=== PATIENT | male | born 1965 | race Caucasian/White ===

== ENCOUNTER 2020-02-18 09:16 | Day surgery (SDC) | payer OTHER, SELFPAY ==
[2020-02-10 07:36] VITALS: BMI 27.0
--- NOTE | 2020-02-17 11:20 | EKG12_ITS ---
Test Reason : PRE OP Blood Pressure : / mmHG Vent. Rate : 067 BPM Atrial Rate : 067 BPM P-R Int : 180 ms QRS Dur : 100 ms QT Int : 406 ms P-R-T Axes : 066 075 029 degrees QTc Int : 429 ms Normal sinus rhythm Normal ECG Confirmed by LIDA HATFIELD ([id number]), editor magazine ORLANDO ROSARIO ([id number]) on 02/18/2020 11:36:34 AM Referred By: Román Peña Confirmed By:LIDA HATFIELD
[2020-02-18] VITALS (7 sets, daily range): BP systolic 111–150; BP diastolic 71–84; PULSE 64–70; RESP 12–16; TEMP 36.3–37; O2SAT 95–98; BMI 24.9
[2020-02-18] MEDS: Lactated Ringers 1,000 ML 100 ML IV ×2 (09:47→12:00)
--- NOTE | 2020-02-18 10:26 | PCM.HP.BLA ---
Problem List (1) Right inguinal hernia Status: Acute History and Physical Date of Admission: 02/18/20 Intake Visit Reasons: Inguinal Hernia Chief Complaint: Possible right inquinal hernia Arborer Required: No Is patient in pain?: No Allergies No Known Allergies Allergy (Verified 02/10/20 07:36) Medications Vit D 1 tab PO DAILY 05/29/17 [History Confirmed 02/10/20] [facility] Medical History (Updated 02/10/20 @ 07:[address] Román Peña MD) Right inguinal hernia (Acute) Chronic appendicitis (Acute) SBO (small bowel obstruction) (Acute) Seasonal allergies (Chronic) history of dvt (Chronic) Abdominal pain (Acute) Right inguinal hernia (Acute) Surgical History (Updated 02/10/20 @ 07:32 by Ibis Villanueva) History of appendectomy (Acute) Family History (Updated 02/10/20 @ 07:34 by Ibis Villanueva) Uncle Diabetes Brother Diabetes High cholesterol Heart disease Father Diabetes Hypertension Grandfather Heart disease Mother Hypertension Social History (Updated 02/10/20 @ 07:[address] Román Peña MD) Smoking Status: Never smoker alcohol intake: current substance use type: does not use HPI HPI HPI: JALEN RAMAN, is a 55 M who presents to the office today for concerns regarding a possible right inguinal hernia. May 2017 I assisted him with a diagnostic laparoscopy identifying a recently resolved small bowel obstruction. I lysed a single adhesion. I performed a laparoscopic appendectomy for suspected chronic appendicitis and I did an umbilical herniorrhaphy. Fortunately he has not had any small bowel obstruction since that time. However over the past several weeks and couple months he has had progressive bulging pain discomfort in the right groin. He has suspected that he had a right inguinal hernia. He has not previously had any groin hernias. He has no difficulty on the left. He has had a remote history of a right lower extremity DVT but that was related to a cellulitis of the right foot. He otherwise enjoys very good health. The pathology from his laparoscopy did show early acute appendicitis. Tissue from the ascending: Biopsy showed organizing nodular fat necrosis with degenerative change with no evidence of malignancy. HPI HPI HPI: JALEN RAMAN, is a 55 M who presents to the office today for ROS General General: No weight change, appetite, fatigue, colon cancer, breast cancer or weakness HEENT HEENT: No difficulty swallowing, eye injury, eye surgery, swollen glands or hoarseness Endo Endocrine: No thyroid disease, diabetes mellitus, thyroid cancer, Hair loss, heat intolerance or cold intolerance Skin Skin: No rash or changing moles Breast Breast: No left breast lump, right breast lump, nipple discharge, breast pain, abnormal mammogram, abnormal US or breast enlargement [facility] [place] Musculoskeletal: No back problems, arthritis, rheumatoid arthritis, gout or joint pain Cardio Cardiovascular: No murmur, pacemaker, heart disease, atrial fibrillation, high blood pressure, heart attack, heart stent, palpitations, shortness of breat with exertion or chest pain Psych Psychiatric: No depression, anxiety or hearing voices Resp Respiratory: No shortness of breath, No sleep apnea, No cough, No COPD, No asthma, No emphysema, No wheezing Gastro Gastrointestinal: Yes abdominal pain, No nausea or vomiting, No diarrhea, No constipation, No blood in stool, No acid reflux, No hemorrhoids, No ulcers, No gallbladder problem, No black,tarry stools Dom Hematologic: No blood thinners, No blood disorders, No bleeding, No anemia, No blood clots Neuro Neurologic: No system reviewed and no additional complaints, except as docu, No as per HPI, No abnormal walking, No abnormal hearing, No abnormal movements, No abnormal speech, No behavioral changes, No burning sensations, No confusion, No seizure-like activity, No unsteadiness, No dizziness, No localized weakness, No frequent falls, No headache(s), No lack of coordination, No loss of vision, No memory loss, No numbness, No other visual disturbances, No radiating pain, No restless legs, No sensory deficit, No fainting, No tingling, No tremor(s), No weakness, No other Exam Const General: cooperative, healthy appearing, comfortable, no acute distress, well developed Nutritional Appearance: average body habitus Orientation: alert, awake [facility] Head: normal to inspection Chest Breast Palpation: No nipple discharge Resp Effort & Inspection: normal respiratory effort Auscultation: clear to auscultation bilaterally Cardio Rate: regular rate Rhythm: regular rhythm Heart Sounds: no murmurs GI Palpation: soft, no hepatosplenomegaly Auscultation: normal bowel sounds Other: Umbilical hernia repair is solid and intact Other: Obvious right inguinal hernia indirect reducible. No similar defect on the left. Testicles are descended and intact. [facility] [place] Cervical Spine: normal cervical lordosis Neuro Cognition: normal cognition Extrem General: no calf tenderness Psych Affect: normal affect Assessment & Plan Problems 1. Right inguinal hernia K40.90 Plan 55-year-old gentleman who has a right inguinal hernia. No previous repair. It is currently reducible. I propose for him a Ayanna right inguinal herniorrhaphy with mesh. We have extensively discussed the technique, benefit, risk of alternatives and we compared and contrasted this to a laparoscopic right inguinal hernia repair. Because of the patient's previous history of small bowel obstruction with a absolute clear etiology not specifically identified at the time of that laparoscopy and with him having gone through a laparoscopic appendectomy and umbilical herniorrhaphy at that time ideally I would avoid penetration of the peritoneum. He is also in favor of having the procedure performed with monitored anesthesia care and local anesthetic. This would avoid a general anesthetic. He is aware of technique, benefit, risk, alternatives. No guarantees of success have been offered. He is aware of the Covid-19 pandemic. He is aware that the [facility] is reporting a low local incidence. We will schedule and proceed at his discretion and expedite his care. Cc: Dr. Maciel Peña M.D., F.A.C.S. I have re-examined the patient. There are no clinical changes since date of exam. Procedure Criteria Procedure Type: Elective COVID Risk Discussion: The surgeon/proceduralist and patient have discussed in detail the risk of exposure to and/or potential harm posed by the COVID-19 virus with having a surgery/procedure at this time versus the risk of delaying the surgery/procedure. It is not possible to know either the risk of delaying the surgery or procedure or chance of getting an infection with perfect accuracy, but a joint decision was made between the patient and the surgeon/proceduralist to proceed at this time with the scheduled surgery/procedure as indicated on the consent form.
[2020-02-18] MEDS: Cefazolin 2 GM in 0.9% Normal Saline 100 ML IV (11:32)
--- NOTE | 2020-02-18 11:40 | DCINST_ITS ---
Discharge Diet: Light diet - advance as tolerated - if you have questions about your diet instructions, please talk to you doctor. Discharge Activity: May Not Drive - for 3-5 days or while taking narcotic pain medicine. May shower in (days): 1 Lifting Restrictions: 10 pounds Call your doctor if your incision/area has: Continuous Slow Oozing, Sudden Increased Bleeding, Increased Pain/ Swelling, Increased Redness, Foul Smelling Discharge Call your doctor if you observe: Fever of 101 or Higher Suture Line Care: Avoid Pulling/Pushing, Avoid Pinching/Bending Additional Dressing/Incision Instructions:: Change or remove dressing in 4 days. Leave steri-strips in place for 1 week. Allergies/Adverse Reactions: Allergies No Known Allergies Allergy (Verified 02/18/20 09:41) Medications to take at Discharge Vit D 1 tab PO DAILY 05/29/17 Primary Care Physician: Maciel Maravilla DO [Primary Care Provider] - Test Results: Test results from this visit will be discussed in further detail at your follow- up appointment, if applicable. Please Follow Up With: Román Peña MD - [phone] When: Call to make an appointment to be seen in about 10 days. May be virtual
[2020-02-18] MEDS: Bupivacaine Mpf 0.5% 30 ML VIAL (12:53)
--- NOTE | 2020-02-18 12:56 | PCM.OPRPT ---
Problem List (1) Right inguinal hernia Status: Acute Report of Operation Date of Procedure: 02/18/20 Pre-Operative Diagnosis: Indirect right inguinal hernia Post-Operative Diagnosis: Same Surgery/Procedure Performed:: Lichenstein right inguinal herniorrhaphy. Bard mesh preshaped keyhole. Lot number [id number]. Reference #[id number]. Expiry date 03/15/2024 Description of Surgical Findings:: 55-year-old gentleman was taken to the operating room. He was placed supine on the table. He underwent monitored anesthesia care. The right groin was sterilely prepped and draped. Ancef 2 g were given intravenously. 1% lidocaine mixed 50-50 with 0.5% Marcaine was used as a local anesthetic. 25 cc was used. Local was instilled. A ilioinguinal nerve block was performed. Transverse incision was made in the right groin sharp dissection carried down through the subcutaneous tissue. External oblique was identified and incised. The cord structures identified these were dissected free and a Ronda drain was placed circumferentially. Tedious sharp and blunt dissection was performed as the cremasterics fibers were hypertrophied. Were needed these were traced dissected and transected with electrocautery. A cord lipoma and an indirect sac was identified and these were completely dissected free and then inverted. Tedious dissection was required to clearly identify the inguinal floor. I then approximated the transversalis fascia to itself with a running 3-0 Ethibond starting from the pubic tubercle to the internal ring reapproximating the internal ring. This helped keep the lipoma and sac inverted. I then used a keyhole mesh. Wrapped that around the internal ring and secured it to itself laterally with 3-0 Ethibond trimmed the tails placed of beneath the external oblique and then secured the mesh to the pubic tubercle aponeurosis of the internal/external oblique into the shelving edge of Poupart's with the 3-0 Ethibond. Good coverage and securement was felt to been achieved. The mesh appeared to have good positional lie. Ilioinguinal nerve was felt to been protected posteriorly. The external oblique was partially reapproximated with running 3-0 Vicryl. Subdermal tissues approximated with the same. Skin edges approximated running septic or 4-0 Monocryl. Steri-Strips Telfa OpSite dressings applied. Sponge and instrument and needle counts were reported to the surgeon to be correct. Specimens none. Drains none. Blood loss minimal. Román Peña M.D., F.A.C.S. Type of Anesthesia:: Local MAC Anesthesiologist: Oc Griffiths
== END 2020-02-18 14:37 | disposition home or self-care (01) ==
LOC: SDC 09:17 → AC 09:18
PROVIDERS: Anesthesiology; PCP Family Medicine; Referring Provider Surgery; Visit Provider Surgery
PROC: (CPT 49505; principal; 2020-02-18 11:20)
DX: K40.90 Unilateral inguinal hernia, without obstruction or gangrene, not specified as recurrent (principal); Z11.59 Encounter for screening for other viral diseases; Z86.718 Personal history of other venous thrombosis and embolism
CPT/HCPCS: 00830; 49505; 87635; 93005; G2023; J7120; C1781; J2405; U0003

== ENCOUNTER 2020-02-21 17:25 | Emergency (ER) | payer OTHER, SELFPAY ==
[2020-02-18 09:41] VITALS: BMI 24.9
[2020-02-21 17:26] VITALS: BP 128/98; PULSE 132; RESP 16; TEMP 36.4; BMI 24.7
--- NOTE | 2020-02-21 17:41 | ED.VIS.GEN ---
History of Present Illness Chief Complaint: Abd Pain Detail of Chief Complaint: Rectal pressure Informant: Patient Onset: Today Current Severity: Moderate Maximum Severity: Moderate Narrative: Patient presents secondary to rectal pain and constipation. He had an inguinal hernia repair on February 17. He has been taking Aleve and Tylenol for pain, he did not require the narcotics that were written for him. He states that he had a very small bowel movement this morning and urinated at that time. Since then he has been straining to try to have a bowel movement but unable. He states he has also had difficulty passing urine. He denies fever or chills. He states that the surgical site has not been bothering him today at all. - Past Medical History (1) H/O inguinal hernia repair Status: Chronic (2) SBO (small bowel obstruction) Status: Chronic (3) history of dvt Status: Chronic Past Medical History - Allergies and Home Meds Allergies/Adverse Reactions: Allergies No Known Allergies Allergy (Verified 02/21/20 17:28) Primary Care Physician: Maciel Maravilla DO [Primary Care Provider] - Doctors: Dr. Peña Prior records reviewed: Yes Surgical History: - - dental surgery, colonoscopy Lives: Spouse/ Significant Other Smoking Status: Never smoker - Family History Offspring Family History: Family History (Last Updated 02/10/20 @ 07:34 by Ibis Villanueva) Uncle Diabetes Brother Diabetes High cholesterol Heart disease Father Diabetes Hypertension Grandfather Heart disease Mother Hypertension Family History: Reports: Unknown Maternal Family History: Family History (Last Updated 02/10/20 @ 07:34 by Ibis Villanueva) Uncle Diabetes Brother Diabetes High cholesterol Heart disease Father Diabetes Hypertension Grandfather Heart disease Mother Hypertension Family History: Reports: Hypertension Paternal Family History: Family History (Last Updated 02/10/20 @ 07:34 by Ibis Villanueva) Uncle Diabetes Brother Diabetes High cholesterol Heart disease Father Diabetes Hypertension Grandfather Heart disease Mother Hypertension Family History: Reports: Diabetes, - Review of Systems General: Denies: Chills, Fever Eyes: Denies: Visual changes - bilaterally ENT: Denies: Bilateral ear pain Cardiovascular: Denies: Chest pain Respiratory: Denies: Dyspnea, Cough Gastrointestinal: Reports: Constipation, - - Rectal pressure. Denies: Abdominal pain Genitourinary: Reports: - - Difficulty urinating. Denies: Dysuria Musculoskeletal: Denies: Extremity Pain Skin: Denies: Rash Neurological: Denies: Headache Hematologic: Denies: Easy bruising, Easy bleeding Allergy: Denies: Uticaria Physical Exam Vital Signs/Narrative: Vital Signs Temp Pulse Resp BP 02/21/20 17:26 97.6 F L 132 H 16 128/98 H Inital Vital Signs reviewed: Yes General: Well nourished, Well developed Head: Normocephalic ENT: Moist mucous membranes Neck: Supple Cardiovascular: Regular rate, Regular rhythm Respiratory: No distress, CTA bilaterally Abdomen: Soft, Nontender, - - Right groin surgical site clean with minimal tenderness. Rectal: - - Large amount of stool in the rectal vault. Disimpacted best as possible. Extremities: Nontender Skin: Normal color Neurological: Alert, Oriented x3 Psychological: - - Anxious Diagnostic/Tx/Re-eval - Medical Decision Making Patient's rectum was disimpacted manually. Soapsuds enema was attempted with poor results. He still does not feel he is able to urinate. Bladder scan revealed greater than 200 cc of urine. Coronado catheter was placed with 1100 cc of urine out. At this time patient reports significant improvement in the pelvic pressure. He still feels like he is constipated. At this time he is refusing to go home with the Coronado catheter. He does understand that he might be back in 6 or 8 hours if he cannot urinate and has increased pain again. He will be given a bottle of mag citrate for home. ED Disposition - Plan for ED Patient: Disposition: Home or Assisted Living Diagnosis: Urinary retention, Constipation Instructions: ED Urinary Retention Male, ED Constipation Referrals: Maciel Maravilla DO [Primary Care Provider] - Román Peña MD [STAFF PHYSICIAN] -
--- NOTE | 2020-02-21 20:07 | ED.RN ---
urinary catheter removed upon discharged, output 1,200 ml
[2020-02-21 20:24] VITALS: BP 134/82; PULSE 99; RESP 16; O2SAT 99
[2020-02-21] MEDS: Magnesium Citrate 300 ML PO (20:24)
== END 2020-02-21 20:50 | disposition home or self-care (01) ==
PROVIDERS: Emergency Provider Emergency Medicine; PCP Family Medicine
DX: R33.9 Retention of urine, unspecified (principal); K59.00 Constipation, unspecified
CPT/HCPCS: 51702; 99285

== ENCOUNTER 2020-09-08 13:05 | Outpatient (RCR) | payer OTHER, SELFPAY | END 2020-09-08 23:59 | LOC: IMMUN 13:05 | PROVIDERS: PCP Family Medicine; Visit Provider Family Medicine | DX: Z23 Encounter for immunization (principal) | CPT/HCPCS: 0011A; 0012A; 91301 ==

== ENCOUNTER 2024-09-03 07:55 | Day surgery (SDC) | payer OTHER, SELFPAY ==
[2024-09-03] VITALS (10 sets, daily range): BP systolic 128–138; BP diastolic 72–94; PULSE 53–74; RESP 14–16; TEMP 36.1–36.4; O2SAT 93–100; BMI 25.7
--- NOTE | 2024-09-03 | IMM_PTH ---
PATIENT: JALEN RAMAN LOC: [facility] [place] U#:[id number] AGE/SX: 59/M ROOM: RE09/03/[address]: Dr. Codey Hill MD : [id number] BED: DIS: 09/03/2024 SPEC #: [id number] RECD: 09/07/24 10:40 STATUS: LOU REQ #: [id number] ANGELICA: 09/03/24 00:[address]: Codey Hill DEPT: IMMUNOHISTOCHEMISTRY RECD BY: Shamar Liang ENTERED: 09/07/24 10:41 SP TYPE: IMMUNO OTHR DR: Dr. Maciel Maravilla, DO Tissues: A - Lymph node of pelvis, NOS Procedures: BCL-2 (add) BCL-6 (add) CD10 (add) CD20 (add) CD23 (add) CD3 (add) CD43 (add) CD45 (add) CD5 (add) CD79A (add) CK8 (add) CYCLIN (add) KI-67 (add) Pankeratin (initial) PHYSICIAN & [address] [address] SPECIMEN INFORMATION: Tissue Source: A- Left inguinal lymph node Clinical Info: Cholelithiasis, enlarged lymph nodes Specimen Number: [id number] CPT code: [id number] METHODOLOGY: Deparaffinized sections of prefer/formalin-fixed tissue or PAP/DQ stained slides are incubated with monoclonal/polyclonal antibodies/oligonucleotide probes. Localization is made via biotin free immunoperoxidase method. Appropriate controls are performed and reacted as expected. Results on target cell population are indicated in the following table: RESULTS: ANTIBODY / CLONE RESULT Block A 2 AE1-3 (AE1/AE3/PCK26) negative CK8 ([id number]) negative CD3 (PS1) negative CD5 (SP10) positive CD20 (L26) positive CD43 (L60) positive CD45 (RP2/18) positive CD79a (11E3) positive CD10 (56C6) negative CD23 (1B12) positive BCL-2 (bcl-2/100/D5) positive BCL-6 (TB282C/A8) negative Cyclin D1/BCL-1 (SP4) negative Ki-67 (30-9) positive, low to moderate These tests were developed and their performance characteristics determined by [facility]. They may not have been cleared or approved by the U.[place]. Food and Drug Administration. The FDA has determined that such clearance or approval is not necessary. The above immunohistochemical/dualISH markers are ordered and reviewed by the Pathologist. INTERPRETATION: A. Left inguinal lymph node, biopsy: Non-Hodgkin B-cell small lymphocytic lymphoma (B-SLL/CLL). [facility] 09/08/2024
[2024-09-03] MEDS: 0.9% Normal Saline (1000mL) 1,000 ML 15 ML IV (08:05)
--- NOTE | 2024-09-03 08:16 | PRE.ANES_ITS ---
ASA Classification* ASA Classification ASA Classification: 2 Assessment & Plan Anesthesia* Anesthesia Assessment Anesthesia Assessment: Discussed sedation and/or anesthesia options, risks, benefits, and alternatives with patient/parents/legal guardian/POA. Questions invited. The patient/parents/legal guardian/POA seems to understand and agrees to proceed with anesthesia plan. Reviewed the physical assessment, medical history, allergy history and patient home medications list prior to surgery/procedure/anesthetic and documented any changes. Performed airway and anesthesia risk assessments. Anesthesia Type Anesthesia Type: General (Hx n/v) Anesthesia Focused Assessment* Airway Assessment Mouth opens: >3 cm Mallampati Score: II Focused Labs Anesthesia Preop lab: CBC WBC 12.3 K/mm3 (4.4-11.0) H 05/29/17 04:35 RBC 5.69 M/mm3 (4.6-6.2) 05/29/17 04:35 Hgb 16.9 g/dl (13.0-16.5) H 05/29/17 04:35 Hct 49.3 % (40-54) 05/29/17 04:35 Plt Count 215 K/mm3 (150-450) 05/29/17 04:35 CHEMISTRY Potassium 3.8 mmol/L (3.5-5.1) 05/29/17 04:35 Sodium 139 mmol/L (136-145) 05/29/17 04:35 Magnesium 2.0 mg/dL (1.8-2.4) 05/29/17 07:55 Phosphorus 2.2 mg/dL (2.5-4.9) L 05/29/17 07:55 BUN 17 mg/dL (7-18) 05/29/17 04:35 Creatinine 1.21 mg/dL (0.70-1.30) 05/29/17 04:35 Glucose 159 mg/dL (70-110) H 05/29/17 04:35 COAG PT 12.8 SECONDS (11.7-14.9) 05/29/17 07:55 Pre-Assessment Diagnosis/Proposed Procedure Planned Operative Procedure(s): LAP CHOLEY WITH GRAMS LEFT LYMPH NODE BX Anesthesia History 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 When Was Last Pacemaker Check QUESTION #4 FULL TEXT: You/Your Family Experience fever (hyperthermia) with Anesthesia Last Oral Intake Last Oral intake: Last Oral Intake NPO since Meds taken in AM with sips of water? 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 Has anyone observed you stop No 09/02/24 08:26 breathing during sleep? STOP Results Negative 09/02/24 08:26 QUESTION #5 FULL TEXT : Do you snore loudly (louder than talking or can be heard through closed doors)? 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 Specify any problems Hx of Preganancy in last 3 N/A 09/02/24 08:26 Months Nurse Filling Out Transfusion DSCHRIBER 09/02/24 08:26 & Questions: Date: 09/02/24 09/02/24 08:26 Time: 08:09/02/24 08:26 Patient unable to answer at this time (ie. 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: /Reproductive Hx- balancing machine set up worker Hx Now No 09/02/24 08:26 Gestational Age (in weeks): EDC: Hx Hx Para Hx Section SAB No 09/02/24 08:26 Active Medications Active Medications: Current Medications Generic Name Dose Route Start Last Admin Trade Name Freq PRN Reason Stop Dose Admin Cefotetan Disodium 2 gm/ 100 mls @ 200 mls/hr 09/03/24 08:55 Sodium Chloride IV 09/03/24 09:24 PREOP ONE Sodium Chloride 1,000 mls @ 15 mls/hr 09/03/24 08:05 IV 09/08/24 21:24 .Q48H [facility] Protocol PFSH Medical History Wears glasses Alcohol use Prostate disease Orthostatic hypotension Heartburn Non-smoker DVT (deep venous thrombosis) Cardiology follow-up encounter Cholelithiasis Right inguinal hernia Chronic appendicitis Abdominal pain Seasonal allergies SBO (small bowel obstruction) Home Medications ?Medication ?Instructions ?Recorded ?Last Taken ?Type antiarthritic combination no.2 900 1,800 mg PO DAILY 09/02/24 Unknown History mg tablet (glucosamine-chondroitin) ascorbic acid (vitamin C) 500 mg 500 mg PO DAILY 09/02/24 Unknown History tablet (Vitamin C) cholecalciferol (vitamin D3) 25 25 mcg PO DAILY 09/02/24 Unknown History mcg (1,000 unit) capsule (Vitamin D3) fiber 1 tab PO DAILY 09/02/24 Unknown History loratadine 10 mg tablet (Allergy 10 mg PO DAILY 09/02/24 Unknown History Relief (loratadine)) vitamin B complex 1 tab PO DAILY 09/02/24 Unknown History Allergy/AdvReac Type Severity Reaction Status Date / Time bee venom protein (honey Allergy Intermediate Swelling Verified 09/02/24 08:20 bee) (bee sting) Family History Uncle Diabetes Brother Diabetes High cholesterol Heart disease Father Diabetes Hypertension Grandfather Heart disease Mother Hypertension Surgical History Hx of colonoscopy History of right inguinal hernia repair History of appendectomy Social History Smoking Status: Never smoker alcohol intake: current substance use type: does not use Review of Systems (Anesthesia) ROS Narrative System reviewed and no additional complaints, except as documented.
--- NOTE | 2024-09-03 08:24 | EKG12_ITS ---
Test Reason : PREOP Blood Pressure : */* mmHG Vent. Rate : 72 BPM Atrial Rate : 72 BPM P-R Int : 160 ms QRS Dur : 96 ms QT Int : 388 ms P-R-T Axes : 56 47 45 degrees QTcB Int : 424 ms Normal sinus rhythm Normal ECG Confirmed by DHEERAJ RACHEL, OLGA ([id number]), newspaper copy editor MARBIN GOODMAN ([id number]) on 09/14/2024 2:20:20 PM Referred By: Codey Hill Confirmed By: OLGA ESQUEDA MD
--- NOTE | 2024-09-03 12:54 | HP.PCM_ITS ---
History and Physical Date of Admission: 09/03/24 Intake Vital Signs 08/26/2507:07 Height 6 ft 1 in Weight: 196 lb 8 oz BMI 25.9 BP 115/74 Blood Pressure Location Rt brachial Position Sitting Respiration 18 Pulse 65 Pulse Source Monitor Temp 97.6 F L Temp Source Temporal Pulse Oximetry (%) 99 Oxygen Delivery Method room air Intake Visit Reasons: due for c-scope/has gallstones Chief Complaint: due for c-scope/ has gallstones Is patient in pain?: No Allergies No Known Allergies Allergy (Verified 08/26/24 08:08) Medications ?Medication ?Instructions ?Recorded ?Confirmed ?Type Vit D 1 tab PO DAILY 05/29/17 08/26/24 History PFSH Medical History (Updated 08/26/24 @ 09:[address] Codey Hill MD) Cholelithiasis Right inguinal hernia Right inguinal hernia Chronic appendicitis Abdominal pain history of dvt Seasonal allergies SBO (small bowel obstruction) Surgical History History of right inguinal hernia repair History of appendectomy Family History Uncle DiabetesBrother Diabetes High cholesterol Heart diseaseFather Diabetes HypertensionGrandfather Heart diseaseMother Hypertension Social History Smoking Status: Never smoker alcohol intake: current substance use type: does not use HPI HPI HPI: Patient is a 59-year-old male here for gallstones. The patient notes that he has these attacks every 4 to 6 weeks with right upper quadrant pain and some nausea. He was recently emergency room and had a CAT scan that showed cholelithiasis but the CAT scan also showed enlarged lymph nodes throughout the mesentery and periaortic area. Patient denies weight loss or night sweats. ROS General General: No weight change, appetite, fatigue, colon cancer, breast cancer or weakness HEENT HEENT: No difficulty swallowing, eye injury, eye surgery, swollen glands or hoarseness Endo Endocrine: No thyroid disease, diabetes mellitus, thyroid cancer, Hair loss, heat intolerance or cold intolerance Skin Skin: No rash or changing moles Musc Musculoskeletal: No back problems, arthritis, rheumatoid arthritis, gout or joint pain Cardio Cardiovascular: No murmur, pacemaker, heart disease, atrial fibrillation, high blood pressure, heart attack, heart stent, palpitations, shortness of breat with exertion or chest pain Psych Psychiatric: No depression, anxiety or hearing voices Resp Respiratory: No shortness of breath, No sleep apnea, No cough, No COPD, No asthma, No emphysema and No wheezing Gastro Gastrointestinal: Yes abdominal pain, No nausea or vomiting, No diarrhea, No constipation, No blood in stool, No acid reflux, Yes hemorrhoids, No ulcers, Yes gallbladder problem and No black,tarry stools Dom Hematologic: No blood thinners, No blood disorders, No bleeding, No anemia and No blood clots Neuro Neurologic: No numbness, No tingling and No weakness Exam Const General: cooperative Orientation: alert and oriented x3 HENMT Head: normal to inspection Neck Neck: normal visual inspection and full ROM Chest Chest palpation & inspection: normal inspection of the chest Resp Effort & Inspection: normal respiratory effort Auscultation: clear to auscultation bilaterally Cardio Rate: regular rate Rhythm: regular rhythm GI Inspection: non-distended Palpation: soft and nontender Skin General: no rashes or lesions noted Neuro General: patient alert and patient oriented x3 Extrem General: full ROM Psych Appearance: grossly normal Mental Status: mental status grossly normal Assessment and Plan Assessment and Plan (1) Cholelithiasis: Status: Acute Plan: Patient has cholelithiasis needs been having gallbladder attacks that last several hours. I recommended laparoscopic cholecystectomy to remove the gallbladder. I discussed the surgery in detail as well as the risks including but not limited to bleeding, infection, injury other organs, need for further surgery. Patient understands the risks and is willing to proceed. (2) Enlarged lymph nodes: Status: Acute Plan: The patient has enlarged lymph nodes in the mesentery in the periaortic chains. He also has enlarged lymph nodes in the groins. I was also able to palpate lymph nodes in the posterior neck as well. Axilla was clean with no enlarged lymph nodes that I could palpate. I would like to biopsy an inguinal lymph node at the time of surgery. I discussed performing excisional biopsy of the left inguinal lymph node at the time of surgery for diagnosis. I discussed the risks of bleeding, infection, injury to femoral vessels or nerve. Patient understands the risks and is willing to proceed. Codey Hill MD Pager: [facility] [address] [place] [address], [address] [place] [address] Office: I have examined the patient and the H&P has been reviewed. There are no clinical changes since date of exam.
[2024-09-03] MEDS: Cefotetan 2 GM in 0.9% Normal Saline (100mL MB+) 100 ML IV (13:23)
--- NOTE | 2024-09-03 13:47 | LYM_PTH ---
PATIENT: JALEN RAMAN LOC: [facility] [place] U#:[id number] AGE/SX: 59/M ROOM: RE09/03/[address]: Dr. Codey Hill MD : [id number] BED: DIS: 09/03/2024 SPEC #: [id number] RECD: 09/03/24 13:52 STATUS: LOU MONTERROSO #: [id number] ANGELICA: 09/03/24 13:[address]: Codey Hill DEPT: SURGICAL PATHOLOGY RECD BY: Seble Carson ENTERED: 09/03/24 14:14 SP TYPE: LYM NODES OTHR DR: Dr. Maciel Maravilla, DO Tissues: A - Lymph node of pelvis, NOS B - Gallbladder, NOS Procedures: Surgery Specimen Level V HEADER OPERATION: Laparoscopic cholecystectomy with IOC and left inguinal lymph node PRE-OP DIAGNOSIS: Cholelithiasis, enlarged lymph nodes TISSUE SUBMITTED: A- Left inguinal lymph node, B- Gallbladder MICROSCOPIC DIAGNOSIS A. Left inguinal lymph node, excisional biopsy: Non-Hodgkins B-cell lymphoma, small lymphocytic lymphoma (B-SLL/CLL). See comment. B. Gallbladder, cholecystectomy: Chronic cholecystitis, cholelithiasis and cholesterolosis. SJ.mr 09/07/2024 COMMENT A. Immediate evaluation by Dr. Mckenna: Numerous lymphocytes are noted. SJ:mr 09/03/24 A. Immunohistochemistry ([id number]) supports the above diagnosis. Flow cytometry study from [facility] shows B-cell lymphoma (CD5/CD23 positive). Flow cytometry immunophenotyping are compatible with small lymphocytic lymphoma (B-SLL/CLL). Complete report is viewable in patient's EMR. Case has been reviewed in consultation with Dr. Lange who concurs with the above diagnosis. IDC:[id number] MICROSCOPIC DESCRIPTION Slides are reviewed. GROSS DESCRIPTION A. Received without fixative for lymphoma protocol labeled with the patient's name is a specimen designated Left inguinal lymph node biopsy. The specimen consists of an ovoid piece of barbour soft tissue consistent with lymph node measuring 3.5 x 2 x 1cm. The specimen is serially sectioned and reveal barbour fleshy cut surfaces. A portion of tissue is submitted for flow cytometry study. Two touch imprints are prepared at the time of core biopsy. The entire specimen is submitted in four cassettes. TAMARA. 09/03/2024 B. Received is one container labeled with the patient's name and designated gallbladder. The specimen consists of a gallbladder measuring 8.5 cm in length and up to 3 cm in diameter. The external surface is pink-barbour, smooth and glistening for the most part. Focally it is granular, hemorrhagic and contains cautery artifact. The gallbladder contains yellow mucoid bile and one ovoid greenish-yellow stone measuring in aggregate 2.0 x 1.2 x 1.0 cm. The mucosa also shows several yellowish streaks consistent with cholesterolosis. The mucosa is bile-stained and without any mass lesions. The gallbladder wall measures up to 0.2 cm in thickness. Wood Calker sections from the gallbladder and the cystic duct are submitted in one cassette. / SJ:mr 09/04/2024 TC:0 CPT: 45792,64271, 52716
--- NOTE | 2024-09-03 14:00 | RAD_ITS ---
STUDY: INTRAOPERATIVE CHOLANGIOGRAM. REASON FOR EXAM: Male, 59 years old. LAP MUNDO W/ IOC FLUOROSCOPY TIME (if supplied): ( 13 seconds ) minutes/seconds. 4.36 mGy. TECHNIQUE: An intraoperative cholangiogram was performed by the surgeon. Imaging was provided. COMPARISON: None. FINDINGS: The intra and extrahepatic biliary ducts are unremarkable. Free flow of contrast into the duodenum. RAD/Cholangiogram/ O R,Initial IMPRESSION: Unremarkable intraoperative cholangiogram. Electronically Signed: Dani Li MD at 14:38 EST ,
[2024-09-03] MEDS: Bupiv/Epi 0.25% 30 ML Vial (14:18)
--- NOTE | 2024-09-03 14:29 | PCM.OPRPT ---
Operative Report (Standard) Operative Information Date of Procedure: 09/03/24 Pre-Operative Diagnosis: 1. Lymphadenopathy 2. Cholelithiasis Post-Operative Diagnosis: Same Surgery/Procedure Performed: 1. Laparoscopic cholecystectomy with cholangiograms 2. Excisional biopsy of left inguinal lymph node sap portal architect: Yes Superintendent Transmission: Jonnathan Becker Tasks completed by assistant professor of forestry: Opening, Closing and Retracting Type of Anesthesia: General/Regional RN Documented Start/Stop Times: Operation Date: 09/03/24 09:25 Case Time Into Pre-Op 09/03/24 08:01 Out of Pre-Op 09/03/24 13:15 Anesthesia Start 09/03/24 13:18 Into Room 09/03/24 13:18 Procedure Start 09/03/24 13:38 Procedure End 09/03/24 14:29 Procedure Start Time: 13:38 Procedure Stop Time: 14:29 Select all DRAINS/GRAFTS/IMPLANTS that apply: None Estimated Blood Loss: 10 Specimen collected: Yes Description of specimen(s) removed: Gallbladder and left inguinal lymph node Description of surgery: After obtaining informed consent patient was brought back to the operating room. General anesthesia was induced. The left groin was prepped and draped in usual sterile fashion. Ultrasound was used to localize the largest lymph node and an incision was marked above this area. Local anesthetic was injected. Incision was made with a scalpel and deepened to the subcutaneous tissue. The lymph node was identified and grasped and elevated. Harmonic scalpel was used to dissected circumferentially and remove it. It was sent fresh. The cavity was hemostatic. The incision was closed with interrupted 3-0 Vicryl sutures and Dermabond glue. The abdomen was prepped and draped in usual sterile fashion. A small midline incision was made superior to the umbilicus and deepened to the level of fascia. The fascia was elevated and incised. Next the peritoneum was elevated and incised in the same fashion. Finger sweep was performed and the Pierce trocar was placed into the abdomen. The balloon was inflated. The abdomen was inflated to 15 mmHg. Next a camera was introduced into the abdomen and the abdomen was inspected. Next under direct visualization three 5-mm ports were placed one subxiphoid and 2 subcostal. Next the gallbladder was elevated and retracted toward the right shoulder. The peritoneum was stripped from the gallbladder. The infundibulum was located and retracted laterally. Next the triangle of Calot was dissected and the cystic duct and cystic artery were identified. Cholangiograms were performed. The Benitez clamp was used to clamp across the infundibulum and the catheter needle was inserted into the gallbladder. Under fluoroscopy contrast was instilled into the gallbladder and the common duct, cystic duct as well as proximal hepatic ducts were identified. There was good filling of the duodenum. There were no filling defects noted in the common bile duct. The clamp was removed as well as the needle and the infundibulum was grasped once more. Three hemolock clips were placed across the cystic duct. The cystic duct was then divided leaving 2 clips on the stump. The cystic artery was clipped and divided in the same fashion. The hook cautery was then used to take the gallbladder off of the gallbladder bed. Hemostasis was obtained. Gallbladder fossa was irrigated and no active bleeding or bile leakage was noted. Next the camera was introduced in the subxiphoid port. An Endopouch bag was placed through the umbilical port and the gallbladder was placed into it. The gallbladder was then removed through the umbilical incision. The camera was then reinserted through the umbilical port. The gallbladder fossa was inspected once more and noted to be hemostatic with no leaking bile. The abdomen was suctioned dry. The 5 mm ports were removed under direct visualization. The umbilical port was then removed and the air was removed from the abdomen. Next using an 0 Vicryl suture the umbilical fascia was closed in a [id number] fashion. The umbilical port site was irrigated local anesthetic was administered to all the incisions. All the incisions were closed with interrupted subcuticular 4-0 Monocryl sutures followed by Steri-Strips and dressings. The patient was awoken and taken to PACU in stable condition. Surgical Findings: Enlarged lymph nodes Complications Complications: No Admit VTE Documentation VTE Mechan Device Prophylaxis: SCD's
--- NOTE | 2024-09-03 14:33 | EX.PCM.DISCH ---
Discharge Instructions Procedure Gallbladder Diet Discharge Diet: Light diet - advance as tolerated Activity Discharge Activity: May Not Drive (for 2-3 days or while taking narcotic pain medications.) and - (Do not drive, work heavy equipment or sign legal documents for 24 hours.) May shower in (days): 1 Lifting Restrictions: 20 lbs for 2 weeks Additional Activity Instructions:: Pain medication may cause nausea. You should typically eat light foods as you take your pain medications. Pain medication may also cause constipation. If this is a problem for you, please discuss with your doctor. Dressing / Incision Call your doctor if your incision/area has: Continuous Slow Oozing, Sudden Increased Bleeding, Increased Pain/ Swelling, Increased Redness and Foul Smelling Discharge Call your doctor if you observe: Fever of 101 or Higher Suture Line Care: Avoid Pulling/Pushing and Avoid Pinching/Bending Remove Dressing in: 2 days Additional Dressing/Incision Instructions:: Leave operative bandaids on for 2 days. When you remove dressing, leave Steri-Strips on until your follow-up appointment, or until the Steri-Strips fall off on their own. Follow Up Care Please Follow Up With: Codey Hill MD When: Please call to schedule 2 week follow up appointment. [phone] Test Results: Test results from this visit will be discussed in further detail at your follow-up appointment, if applicable. Discharge Plan Admission Attending Provider: Codey Hill Primary Care Provider: Maciel Maravilla Instructions Print Language: Bruneian Discharge Orders/Prescriptions Prescriptions: New oxycodone 5 mg Tablet 5 - 10 mg PO Q4H PRN PRN (Reason: Pain Score 4-10) 5 Days Qty: 20 0RF No Action cholecalciferol (vitamin D3) [Vitamin D3] 25 mcg (1,000 unit) capsule 25 mcg PO DAILY ascorbic acid (vitamin C) [Vitamin C] 500 mg tablet 500 mg PO DAILY vitamin B complex Tablet 1 tab PO DAILY fiber Tablet,Chewable 1 tab PO DAILY glucosamine-chondroitin 900 mg tablet 1,800 mg PO DAILY loratadine [Allergy Relief (loratadine)] 10 mg tablet 10 mg PO DAILY Referrals / Follow Up: Maciel Maravilla DO [Primary Care Provider] - Disposition Disposition (needs filled in before D/C Order can be placed): Home, Self Care
--- NOTE | 2024-09-03 14:58 | PCM.POST.ANE ---
Anesthesia: Postop Eval I Current Vital Signs Temperature: 97.4 F Pulse Rate: 70 Blood Pressure: 135/89 Respiratory Rate: 14 Pulse Ox: 98 Oxygen Delivery Method: Room Air Assessment Airway patent: Yes Spontaneous unlabored respirations: Yes Mental status: Awake and Calm nausea: No Vomiting: No Anesthesia Complication: No Fluid Hydration Crystalloid volume administer (ml): 800 Total IV fluid infused: 800 Progress Note Anesthesia document: Postop Eval 1 completed: Yes
--- NOTE | 2024-09-03 15:23 | PCM.POSTANE2 ---
Anesthesia Postop Eval I Sum Postop Eval Completion status Anesthesia document: Postop Eval 1 completed: Yes Anesthesia Postop Eval I Summary Anesthesia Postop Eval I Summary: Anesthesia Postop Eval I: Assessment Summary Airway patent Yes 09/03/24 14:59 [email or web address] Spontaneous unlabored Yes 09/03/24 14:59 [email or web address] respirations Mental status Awake,Calm 09/03/24 14:59 [email or web address] nausea No 09/03/24 14:59 [email or web address] Vomiting No 09/03/24 14:59 [email or web address] Anesthesia Postop Eval I: Fluid Summary Crystalloid volume administer 800 09/03/24 14:59 [email or web address] (ml) Colloids volume administered ( ml) Blood Product volume administered (ml) Total IV fluid infused 800 09/03/24 14:59 [email or web address] Anesthesia Postop Eval I: Summary Notes Anesthesia Complication No 09/03/24 14:59 [email or web address] Anesthesia Complication Comment: Post-operative progress note Anesthesia: Postop Eval II Evaluation Mental status: Awake Pain Level: 0 nausea: No Vomiting: No
[2024-09-03] MEDS: Acetaminophen 325 MG Tablet 650 MG PO (16:12)
== END 2024-09-03 17:08 | disposition home or self-care (01) ==
LOC: SDC 07:58 → AC 08:05
PROVIDERS: PCP Family Medicine; Referring Provider Surgery; Visit Provider Surgery
PROC: (CPT 47610; principal; 2024-09-03 09:10)
DX: K80.11 Calculus of gallbladder with chronic cholecystitis with obstruction (principal); C91.10 Chronic lymphocytic leukemia of B-cell type not having achieved remission
CPT/HCPCS: 47563; 38500; 00790; 74300; 76000; 88307; 88341; 88342; 93005; A4648; J2405